=== PATIENT | male | born 1965 | race Caucasian/White ===

== ENCOUNTER 2017-03-30 08:03 | Observation (INO) | payer OTHER ==
[2017-03-30] MEDS ORDERED: NS 0.9% 1000 ML* 1,000 ML IV SCH (08:30)
--- NOTE | 2017-03-30 08:53 | RAD ---
HISTORY: Low pressure COMPARISONS: None VIEWS:1: Single frontal portable view of the chest at 8:35 AM FINDINGS: LINES AND TUBES: None. CARDIOMEDIASTINAL SILHOUETTE: The cardiomediastinal silhouette is normal for portable technique. PLEURA: The costophrenic angles are sharp. No pleural abnormalities are noted. LUNG PARENCHYMA: The lungs are clear. ABDOMEN: The upper abdomen is clear. There is no subphrenic gas. BONES AND SOFT TISSUES: No bone or soft tissue abnormalities are noted. IMPRESSION: NO ACTIVE CARDIOPULMONARY DISEASE.
[2017-03-30] MEDS ORDERED: Nitroglycerin TAB 0.4 MG* 0.4 MG TAB SL ONE (09:02)
[2017-03-30] MEDS ORDERED: Acetaminophen TAB* 325 MG PO ONE (09:41)
[2017-03-30 09:48] LABS: ALT 27 U/L (7-52); Albumin 4.3 g/dL (3.2-5.2); Alkaline Phosphatase 62 U/L (34-104); BUN/Creatinine Ratio 11.8 (8-20); Blood Urea Nitrogen 11 mg/dL (6-24); CO2 Carbon Dioxide 25 mmol/L (22-32); Calcium 9.2 mg/dL (8.6-10.3); Chloride 106 mmol/L (101-111); EGFR African American 111.1 (>60); EGFR Non-African American 86.4 (>60); Globulin 3.4 g/dL (2-4); Glucose 98 mg/dL (70-100); Lipase 21 U/L (11.0-82.0); Sodium 137 mmol/L (133-145); Total Protein 7.7 g/dL (6.4-8.9)
--- NOTE | 2017-03-30 10:01 | RAD ---
HISTORY: Dizziness, left arm numbness COMPARISONS: August 21, 2015 TECHNIQUE: Multiple contiguous axial CT scans were obtained of the head without intravenous contrast. FINDINGS: HEMORRHAGE/INFARCT: There is no hemorrhage or acute infarct. MASSES/SHIFT: There is no mass or shift. EXTRA-AXIAL SPACES: There are no extra-axial fluid collections. SULCI AND VENTRICLES: The sulci and ventricles are normal in size and position for the patient's stated age. CEREBRUM: There are no focal parenchymal abnormalities. BRAINSTEM: There are no focal parenchymal abnormalities. CEREBELLUM: There are no focal parenchymal abnormalities. VESSELS: The vessels are grossly normal. PARANASAL SINUSES: The paranasal sinuses are clear. ORBITS: The orbits are unremarkable. BONES AND SOFT TISSUE: No bone or soft tissue abnormalities are noted. OTHER: None IMPRESSION: NO ACUTE INTRACRANIAL PATHOLOGY.
[2017-03-30 10:08] LABS: Hematocrit 48 % (42-52); Hemoglobin 16.5 g/dl (14.0-18.0); Mean Corpuscular HGB Conc 34 g/dl (31-36); Mean Corpuscular Hemoglobin 32 pg (27-31); Mean Corpuscular Volume 94 fL (80-94); Red Cell Distribution Width 13 % (10.5-15)
[2017-03-30 10:09] LABS: Comments Flag Yes
[2017-03-30 10:10] LABS: Add Diff/Slide Review? Slide Review Added
[2017-03-30 10:18] LABS: TSH (Thyroid Stimulating Horm) 1.73 mcIU/mL (0.34-5.60)
[2017-03-30 10:45] LABS: Anion Gap 6 mmol/L (2-11)
[2017-03-30 11:30] LABS: Mean Platelet Volume 10 um3 (7.4-10.4); Red Blood Count 5.14 10^6/ul (4.0-5.4)
[2017-03-30] MEDS ORDERED: Ondansetron INJ* 2 MG/ML VIAL IV PRN (11:34)
[2017-03-30] MEDS ORDERED: Acetaminophen TAB* 325 MG PO PRN (11:34)
[2017-03-30] MEDS ORDERED: Aspirin Low Dose CHEW TAB* 81 MG PO ONE (11:41)
[2017-03-30] MEDS ORDERED: hydrALAZINE IV* 20 MG/ML VIAL IV SLOW PU PRN (13:25)
[2017-03-30] MEDS: amLODIPine TAB* 5 MG PO SCH (13:36)
[2017-03-30] MEDS: Heparin VIAL(*) 5000 UNITS/ML VIAL (FIVE THOUSAND) SUBCUT SCH ×2 (13:37→22:27)
--- NOTE | 2017-03-30 14:41 | ED ---
Jostin Zhu [place], scribed for Brandon Webster MD on 03/30/17 at 0855 . Hypertension - HPI Summary HPI Summary: Patient is a 51 y/o M who presents to the ED with high blood pressure since 0630 this morning. He reports clammy hands, tingling in left shoulder and fingers, feeling off balance (like equilibrium is off), dizziness (no room spinning), wax in ears, and pressure in central/top of head, but denies CP, sore throat, SOB, or changes in speech or in lower extremities. He also reports mild edema of ankles, unchanged from baseline. Pt states that he walks 45 minutes a day and takes 81mg ASA. - History of Current Complaint Chief Complaint: EDHypertension Stated Complaint: HIGH BLOOD PRESSURE, DIZZY , LEFT SHOLDER N Time Seen by Provider: 03/30/17 08:49 Hx Obtained From: Patient Onset/Duration: Started Hours Ago, Atraumatic, Still Present Timing: Constant, Lasting Hours Aggravating Factor(s): Nothing Alleviating Factor(s): Nothing Associated Signs & Symptoms: Tingling, Dizziness - Allergies/Home Medications Allergies/Adverse Reactions: Allergies Allergy/AdvReac Type Severity Reaction Status Date / Time No Known Allergies Allergy Verified 08/21/15 10:50 Home Medications: Home Medications NK [No Home Medications Reported] 03/30/17 [History Confirmed 03/30/17] PMH/Surg Hx/FS Hx/Imm Hx Endocrine/Hematology History: Denies: Hx Diabetes Cardiovascular History: Reports: Hx Hypertension - Surgical History Surgery Procedure, Year, and Place: ANKLE SX Infectious Disease History: No Infectious Disease History: Denies: Traveled Outside the [place] in Last 30 Days - Family History Known Family History: Positive: Cardiac Disease, Hypertension, Diabetes, Other - HLD. - Social History Alcohol Use: Weekly Substance Use Type: Reports: None Smoking Status (MU): Never Smoked Tobacco Review of Systems Positive: Skin Diaphoresis - "clammy hands" Positive: Other - "Wax in ears". . Negative: Sore Throat Negative: Chest Pain Negative: Shortness Of Breath Musculoskeletal: Other - No changes in lower extremities. Positive: Edema Neurological: Other - Tingling in LUE. Dizziness. No changes in speech. Positive: Headache - Pressure in top of head. All Other Systems Reviewed And Are Negative: Yes Physical Exam Triage Information Reviewed: Yes Vital Signs On Initial Exam: Initial Vitals Temp Pulse Resp BP Pulse Ox 98.7 F 79 20 203/123 98 03/30/17 08:04 03/30/17 08:04 03/30/17 08:04 03/30/17 08:04 03/30/17 08:04 Vital Signs Reviewed: Yes Appearance: Positive: Well-Appearing, No Pain Distress Skin: Positive: Warm, Skin Color Reflects Adequate Perfusion, Dry Head/Face: Positive: Normal Head/Face Inspection Eyes: Positive: EOMI, EMILE ENT: Positive: Normal ENT inspection Neck: Positive: Supple, Nontender Respiratory/Lung Sounds: Positive: Clear to Auscultation, Breath Sounds Present Cardiovascular: Positive: RRR Abdomen Description: Positive: Nontender, Soft Bowel Sounds: Positive: Present Musculoskeletal: Positive: Strength/ROM Intact, Other - Mild bilateral pedal edema. Neurological: Positive: Normal, Sensory/Motor Intact, Alert, Oriented to Person Place, Time, Other - No neurological deficit. Psychiatric: Positive: Affect/Mood Appropriate - [place] Coma Scale Coma Scale Total: 15 Diagnostics - Vital Signs Vital Signs Temp Pulse Resp BP Pulse Ox 03/30/17 08:07 98.3 F 88 20 203/123 98 03/30/17 08:04 98.7 F 79 20 203/123 98 - Laboratory Lab Results: Lab Results 03/30/17 03/30/17 03/30/17 Range/Units 09:25 09:25 09:25 WBC 10.0 (3.5-10.8) 10^3/ul RBC 5.14 (4.0-5.4) 10^6/ul Hgb 16.5 (14.0-18.0) g/dl Hct 48 (42-52) % MCV 94 (80-94) fL MCH 32 H (27-31) pg MCHC 34 (31-36) g/dl RDW 13 (10.5-15) % Plt Count 172 (150-450) 10^3/ul MPV 10 (7.4-10.4) um3 Neut % (Auto) 62.0 (38-83) % Lymph % (Auto) 24.0 L (25-47) % [place] % (Auto) 10.2 H (1-9) % Eos % (Auto) 3.1 (0-6) % Baso % (Auto) 0.7 (0-2) % Absolute Neuts (auto) 6.2 (1.5-7.7) 10^3/ul Absolute Lymphs (auto) 2.4 (1.0-4.8) 10^3/ul Absolute Monos (auto) 1.0 H (0-0.8) 10^3/ul Absolute Eos (auto) 0.3 (0-0.6) 10^3/ul Absolute Basos (auto) 0.1 (0-0.2) 10^3/ul Absolute Nucleated RBC 0.03 10^3/ul Nucleated RBC % 0.3 INR (Anticoag Therapy) 0.90 (0.89-1.11) APTT 18.4 L (26.0-36.3) seconds D-Dimer, Quantitative < 200 (Less Than 230) ng/mL Sodium 137 (133-145) mmol/L Potassium TNP Chloride 106 (101-111) mmol/L Carbon Dioxide 25 (22-32) mmol/L Anion Gap 6 (2-11) mmol/L BUN 11 (6-24) mg/dL Creatinine 0.93 (0.67-1.17) mg/dL Est GFR ( Amer) 111.1 (>60) Est GFR (Non-Af Amer) 86.4 (>60) BUN/Creatinine Ratio 11.8 (8-20) Glucose 98 (70-100) mg/dL Lactic Acid (0.5-2.0) mmol/L Calcium 9.2 (8.6-10.3) mg/dL Magnesium 2.0 (1.9-2.7) mg/dL Total Bilirubin 0.50 (0.2-1.0) mg/dL AST TNP ALT 27 (7-52) U/L Alkaline Phosphatase 62 (34-104) U/L Troponin I 0.00 (<0.04) ng/mL Total Protein 7.7 (6.4-8.9) g/dL Albumin 4.3 (3.2-5.2) g/dL Globulin 3.4 (2-4) g/dL Albumin/Globulin Ratio 1.3 (1-3) Lipase 21 (11.0-82.0) U/L TSH 1.73 (0.34-5.60) mcIU/mL 06/29/17 06/29/17 Range/Units 10:00 11:10 WBC (3.5-10.8) 10^3/ul RBC (4.0-5.4) 10^6/ul Hgb (14.0-18.0) g/dl Hct (42-52) % MCV (80-94) fL MCH (27-31) pg MCHC (31-36) g/dl RDW (10.5-15) % Plt Count (150-450) 10^3/ul MPV (7.4-10.4) um3 Neut % (Auto) (38-83) % Lymph % (Auto) (25-47) % [place] % (Auto) (1-9) % Eos % (Auto) (0-6) % Baso % (Auto) (0-2) % Absolute Neuts (auto) (1.5-7.7) 10^3/ul Absolute Lymphs (auto) (1.0-4.8) 10^3/ul Absolute Monos (auto) (0-0.8) 10^3/ul Absolute Eos (auto) (0-0.6) 10^3/ul Absolute Basos (auto) (0-0.2) 10^3/ul Absolute Nucleated RBC 10^3/ul Nucleated RBC % INR (Anticoag Therapy) (0.89-1.11) APTT (26.0-36.3) seconds D-Dimer, Quantitative (Less Than 230) ng/mL Sodium (133-145) mmol/L Potassium 4.0 Chloride (101-111) mmol/L Carbon Dioxide (22-32) mmol/L Anion Gap (2-11) mmol/L BUN (6-24) mg/dL Creatinine (0.67-1.17) mg/dL Est GFR ( Amer) (>60) Est GFR (Non-Af Amer) (>60) BUN/Creatinine Ratio (8-20) Glucose (70-100) mg/dL Lactic Acid 1.6 (0.5-2.0) mmol/L Calcium (8.6-10.3) mg/dL Magnesium (1.9-2.7) mg/dL Total Bilirubin (0.2-1.0) mg/dL AST 26 ALT (7-52) U/L Alkaline Phosphatase (34-104) U/L Troponin I (<0.04) ng/mL Total Protein (6.4-8.9) g/dL Albumin (3.2-5.2) g/dL Globulin (2-4) g/dL Albumin/Globulin Ratio (1-3) Lipase (11.0-82.0) U/L TSH (0.34-5.60) mcIU/mL Result Diagrams: 03/30/17 09:25 03/30/17 11:10 Lab Statement: Any lab studies that have been ordered have been reviewed, and results considered in the medical decision making process. - Radiology CXR Radiology Interpretation Completed By: Radiologist - IMPRESSION: NO ACTIVE CARDIOPULMONARY DISEASE. - CT BRAIN CT Interpretation Completed By: Radiologist - IMPRESSION: NO ACUTE INTRACRANIAL PATHOLOGY. - EKG 811 EKG Interpretation: NSR @ [address] No ectopy. Re-Evaluation - Re-Evaluation First Eval Re-Evaluation Time: 10:52 Comment: Reviewed imaigng and lab results. Second Eval Re-Evaluation Time: 11:13 Comment: Discussed consult with hospitalist. Agreeable to admission. Hypertension Course/Dx - Course Course Of Treatment: NO CRITICAL CARE TIME. DISCUSSED RESULTS WITH PATIENT. ADMIT HOSPITALIST STABLE. - Diagnoses Provider Diagnoses: Chest pain, Dizziness - Physician Notifications Discussed Care Of Patient With: Tatianna Zhang Time Discussed With Above Provider: 11:04 - Consult admission. Will admit. Instructed by Provider To: Admit As Inpatient Admit/Transition Orders Completed By ED Provider: Yes Discharge - Discharge Plan Condition: Stable Disposition: ADMITTED TO [facility] documentation as recorded by the Jostin her [place] accurately reflects the service I personally performed and the decisions made by me, Brandon Webster MD.
--- NOTE | 2017-03-30 18:37 | HP ---
CC: Dr. Mcknight * HISTORY AND PHYSICAL: DATE OF ADMISSION: 03/30/17 PRIMARY CARE PROVIDER: Dr. Mcknight. ATTENDING PHYSICIAN WHILE IN THE HOSPITAL: Tatianna Zhang DO * (report dictated by Eron Julio NP). CHIEF COMPLAINT: Chest pain. HISTORY OF PRESENT ILLNESS: Mr. Pendleton is a 51-year-old male patient. He does carry a history of PATRICIA and hypertension, although he is currently not on any blood pressure medications. He comes into the ER today stating he woke up at about 6 o'clock in the morning, he started having some left shoulder tightness and had some tingling down his arm. He felt clammy in his hands. He was concerned because these symptoms were not going away. He checked his blood pressure, it was 179/110. He called his parents. They brought him immediately into the hospital because he was concerned he was having a heart attack. He does state that he felt lightheaded with this. He denied feeling short of breath. He denied having any abdominal discomfort. He states he has not had any recent trips or travel or any calf pain or leg pain. He states that he has not had any recent illnesses. He says he got here, he took nitro here in the ER and that his symptoms went away and he felt much better. He says he does typically walk on a treadmill on a daily basis 30 to 40 minutes a day and he does well with this. He does not get any chest tightness or pressure and he feels that he does well with this every day, but there was concern because of his story and we were asked to evaluate for admission. PAST MEDICAL HISTORY: Significant for: 1. Hypertension. 2. PATRICIA. PAST SURGICAL HISTORY: He has had a left ankle surgery. HOME MEDICATIONS: Denied. ALLERGIES TO MEDICATIONS: Include no known drug allergies. FAMILY HISTORY: His father is diabetic, also has a pacemaker defibrillator. Mother's history is reviewed, noncontributory. SOCIAL HISTORY: He is a former smoker. He occasionally drinks alcohol. He is with 6 children. Surrogate decision maker is his . REVIEW OF SYSTEMS: There is no documented fever. He denied having any significant weight change. There was no double vision. He denies having any ear discharge. There is no rhinorrhea, no sore throat, no thyroid enlargement. He denies any chest pain currently. He denies any abdominal pain. There was no nausea, no vomiting, no dysuria, no frequency, no seizure, no loss of conscious. He did feel dizzy. Review of 14 systems was completed, all others negative. PHYSICAL EXAMINATION GENERAL: At this time, Mr. Pendleton is a 51-year-old male patient. He is morbidly obese. He is sitting in the ER stretcher. He does not appear to be in any acute distress. VITAL SIGNS: Reveals blood pressure 131/90, pulse 69, respirations 19, O2 sat 96%, temperature 98.3. HEENT: Head is atraumatic and normocephalic. Eyes: EOMs are intact. His sclerae were anicteric and not pale. NECK: Supple. THROAT: Oral mucosa appears to be moist. No oropharyngeal erythema. LUNGS: Clear to auscultation bilaterally. No wheezes, rales, or rhonchi. HEART: Sounds S1, S2. Regular rate and rhythm. No murmurs, rubs, or gallops. ABDOMEN: Soft, flat, nontender. Bowel sounds present. EXTREMITIES: Pulses were 2+ throughout. He is able to move all 4 extremities with 5/5 strength. NEUROLOGIC: He is awake. He is alert. He is oriented x3. His speech is clear. No gross focal deficits. SKIN: Intact. DIAGNOSTIC STUDIES/LAB DATA: The labs today revealed WBC of 10.0, RBC of 5.14 , hemoglobin 16.5, hematocrit of 48, and platelet count of 172,000. INR of 0.98. PTT 18.4. D-dimer less than 200. Sodium 137, potassium pending, chloride 106, bicarb 25, BUN 11, creatinine 0.93, glucose 98, lactate 1.6, calcium 9.2, total mag 2.0, total bili 0.5, ALT 27, alk phos 62. Troponin 0. TSH normal. Lipase normal. He had a brain CT obtained today, which showed no acute intracranial pathology. There was a chest x-ray obtained today, under my review I did not appreciate any acute infiltrates or effusions. Radiology read it as no active cardiopulmonary disease. There was an EKG, which showed normal sinus rhythm, rate of 78. No ST elevations or T-wave inversions were noted. Old medical records were reviewed. ASSESSMENT AND PLAN: Mr. Pendleton is a 51-year-old male patient coming into the ER today with complaints of left shoulder discomfort, arm discomfort, and also feeling association of clamminess and becoming sweaty. He was evaluated in the ER. There was concern this could represent acute coronary syndrome. Hospitalist service was asked to evaluate for admission. He will be admitted under observation status for: 1. Chest pain. At this point, his story is concerning, he was relieved with nitro. I think that he does want an observation stay for serial troponins and a stress test, we will try to get the resting portion today, then a stress portion tomorrow. I will go ahead and place him on telemetry. We will start him on aspirin. We will check his A1c and lipid panel in the morning and will continue to follow. 2. Hypertension. We will monitor his blood pressure. His blood pressure when he came in was 203/123, it is now without intervention down to 131/90. We will monitor this. Should it remain elevated, we may need to consider starting him on a small dose of antihypertensive. 3. DVT prophylaxis. He will be placed on heparin subcu. 4. Code status. Full code. 5. Fluids, electrolytes, and nutrition. He is n.p.o. pending stress test and then he can have something to eat after this and it will be a heart healthy diet. TIME SPENT: Time spent on the admission 60 minutes; greater than half the time spent [id number] with the patient obtaining my history and physical; other half time spent going over the plan of care with the patient and implementing plan of care. I discussed the plan of care with my attending, Dr. Zhang; she is in agreement. ERON JULIO NP [id number]/[facility] #: [id number] ESPERANZA
[2017-03-31 05:23] LABS: BUN/Creatinine Ratio 15.1 (8-20); Calcium 9.1 mg/dL (8.6-10.3); EGFR African American 95.5 (>60); EGFR Non-African American 74.3 (>60); HDL Cholesterol 36.1 mg/dL
[2017-03-31 05:25] LABS: Hematocrit 44 % (42-52); Hemoglobin 15.3 g/dl (14.0-18.0); Mean Corpuscular HGB Conc 35 g/dl (31-36); Mean Corpuscular Hemoglobin 32 pg (27-31); Mean Corpuscular Volume 94 fL (80-94); Mean Platelet Volume 9 um3 (7.4-10.4); Red Blood Count 4.73 10^6/ul (4.0-5.4); Red Cell Distribution Width 13 % (10.5-15); White Blood Count 7.1 10^3/ul (3.5-10.8)
[2017-03-31] MEDS: Heparin VIAL(*) 5000 UNITS/ML VIAL (FIVE THOUSAND) SUBCUT SCH (05:44)
[2017-03-31 08:25] VITALS: BP 137/86
[2017-03-31] MEDS ORDERED: Regadenoson* 0.4 MG/5 ML SYRINGE ONE (08:52)
[2017-03-31] MEDS ORDERED: Aminophylline IV* 25 MG/ML 10 ML VIAL ONE (08:52)
[2017-03-31] MEDS ORDERED: Aspirin Low Dose CHEW TAB* 81 MG PO SCH (09:00)
--- NOTE | 2017-03-31 10:03 | PN ---
Subjective Date of Service: 03/31/17 Interval History: Mr. Pendleton states that he is feeling quite well and is eager for discharge to home. He denies chest pain, SOB, nausea, or abdominal pain. Objective Active Medications: Acetaminophen (Tylenol Tab*) 650 mg PO Q4H PRN Amlodipine Besylate (Norvasc Tab*) 5 mg PO DAILY MIROSLAVA Aspirin (Aspirin Low Dose Tab*) 81 mg PO DAILY MIROSLAVA Heparin Sodium (Porcine) (Heparin Vial(*)) 5,000 units SUBCUT Q8HR MIROSLAVA Hydralazine HCl (Apresoline Iv*) 5 mg IV SLOW PU Q6H PRN Ondansetron HCl (Zofran Inj*) 4 mg IV Q6H PRN Vital Signs 03/30/17 03/30/17 03/30/17 12:00 12:05 12:53 Temperature 98.1 F Pulse Rate 69 70 66 Respiratory 20 23 16 Rate Blood Pressure 150/98 179/96 (mmHg) O2 Sat by Pulse 96 95 95 Oximetry 03/30/17 03/30/17 03/30/17 15:25 19:25 19:27 Temperature 98.0 F 98.3 F Pulse Rate 59 76 Respiratory 20 18 20 Rate Blood Pressure 139/93 181/110 (mmHg) O2 Sat by Pulse 95 94 Oximetry 03/30/17 03/30/17 03/30/17 20:04 20:30 23:25 Temperature 98.2 F Pulse Rate 73 64 Respiratory 16 Rate Blood Pressure 157/81 129/79 (mmHg) O2 Sat by Pulse 97 96 Oximetry 03/31/17 03/31/17 03/31/17 03:37 07:24 07:50 Temperature 97.9 F 97.7 F Pulse Rate 52 69 Respiratory 16 20 Rate Blood Pressure 124/79 137/86 (mmHg) O2 Sat by Pulse 96 95 96 Oximetry Oxygen Devices in Use Now: None Appearance: Male sitting up in bed in NAD Eyes: No Scleral Icterus Ears/Nose/Mouth/Throat: Mucous Membranes Moist Neck: Trachea Midline Respiratory: Symmetrical Chest Expansion and Respiratory Effort, Clear to Auscultation Cardiovascular: NL Sounds; No Murmurs; No JVD, No Edema Abdominal: NL Sounds; No Tenderness; No Distention Lymphatic: No Cervical Adenopathy Extremities: No Edema Skin: No Rash or Ulcers Neurological: Alert and Oriented x 3, NL Muscle Strength and Tone Nutrition: Taking PO's Result Diagrams: 03/31/17 04:50 03/31/17 04:50 Additional Lab and Data: Lab Results 03/30/17 03/30/17 03/30/17 Range/Units 09:25 09:25 09:25 WBC 10.0 (3.5-10.8) 10^3/ul RBC 5.14 (4.0-5.4) 10^6/ul Hgb 16.5 (14.0-18.0) g/dl Hct 48 (42-52) % MCV 94 (80-94) fL MCH 32 H (27-31) pg MCHC 34 (31-36) g/dl RDW 13 (10.5-15) % Plt Count 172 (150-450) 10^3/ul MPV 10 (7.4-10.4) um3 Neut % (Auto) 62.0 (38-83) % Lymph % (Auto) 24.0 L (25-47) % [place] % (Auto) 10.2 H (1-9) % Eos % (Auto) 3.1 (0-6) % Baso % (Auto) 0.7 (0-2) % Absolute Neuts (auto) 6.2 (1.5-7.7) 10^3/ul Absolute Lymphs (auto) 2.4 (1.0-4.8) 10^3/ul Absolute Monos (auto) 1.0 H (0-0.8) 10^3/ul Absolute Eos (auto) 0.3 (0-0.6) 10^3/ul Absolute Basos (auto) 0.1 (0-0.2) 10^3/ul Absolute Nucleated RBC 0.03 10^3/ul Nucleated RBC % 0.3 INR (Anticoag Therapy) 0.90 (0.89-1.11) APTT 18.4 L (26.0-36.3) seconds D-Dimer, Quantitative < 200 (Less Than 230) ng/mL Sodium 137 (133-145) mmol/L Potassium TNP Chloride 106 (101-111) mmol/L Carbon Dioxide 25 (22-32) mmol/L Anion Gap 6 (2-11) mmol/L BUN 11 (6-24) mg/dL Creatinine 0.93 (0.67-1.17) mg/dL Est GFR ( Amer) 111.1 (>60) Est GFR (Non-Af Amer) 86.4 (>60) BUN/Creatinine Ratio 11.8 (8-20) Glucose 98 (70-100) mg/dL Lactic Acid (0.5-2.0) mmol/L Calcium 9.2 (8.6-10.3) mg/dL Magnesium 2.0 (1.9-2.7) mg/dL Total Bilirubin 0.50 (0.2-1.0) mg/dL AST TNP ALT 27 (7-52) U/L Alkaline Phosphatase 62 (34-104) U/L Troponin I 0.00 (<0.04) ng/mL Total Protein 7.7 (6.4-8.9) g/dL Albumin 4.3 (3.2-5.2) g/dL Globulin 3.4 (2-4) g/dL Albumin/Globulin Ratio 1.3 (1-3) Lipase 21 (11.0-82.0) U/L TSH 1.73 (0.34-5.60) mcIU/mL 03/30/17 03/30/17 Range/Units 10:00 11:10 WBC (3.5-10.8) 10^3/ul RBC (4.0-5.4) 10^6/ul Hgb (14.0-18.0) g/dl Hct (42-52) % MCV (80-94) fL MCH (27-31) pg MCHC (31-36) g/dl RDW (10.5-15) % Plt Count (150-450) 10^3/ul MPV (7.4-10.4) um3 Neut % (Auto) (38-83) % Lymph % (Auto) (25-47) % [place] % (Auto) (1-9) % Eos % (Auto) (0-6) % Baso % (Auto) (0-2) % Absolute Neuts (auto) (1.5-7.7) 10^3/ul Absolute Lymphs (auto) (1.0-4.8) 10^3/ul Absolute Monos (auto) (0-0.8) 10^3/ul Absolute Eos (auto) (0-0.6) 10^3/ul Absolute Basos (auto) (0-0.2) 10^3/ul Absolute Nucleated RBC 10^3/ul Nucleated RBC % INR (Anticoag Therapy) (0.89-1.11) APTT (26.0-36.3) seconds D-Dimer, Quantitative (Less Than 230) ng/mL Sodium (133-145) mmol/L Potassium 4.0 Chloride (101-111) mmol/L Carbon Dioxide (22-32) mmol/L Anion Gap (2-11) mmol/L BUN (6-24) mg/dL Creatinine (0.67-1.17) mg/dL Est GFR ( Amer) (>60) Est GFR (Non-Af Amer) (>60) BUN/Creatinine Ratio (8-20) Glucose (70-100) mg/dL Lactic Acid 1.6 (0.5-2.0) mmol/L Calcium (8.6-10.3) mg/dL Magnesium (1.9-2.7) mg/dL Total Bilirubin (0.2-1.0) mg/dL AST 26 ALT (7-52) U/L Alkaline Phosphatase (34-104) U/L Troponin I (<0.04) ng/mL Total Protein (6.4-8.9) g/dL Albumin (3.2-5.2) g/dL Globulin (2-4) g/dL Albumin/Globulin Ratio (1-3) Lipase (11.0-82.0) U/L TSH (0.34-5.60) mcIU/mL Assess/Plan/Problems-Billing Assessment: Mr. Pendleton is a 51 yo male with a PMH of hypertension and PATRICIA who was admitted on 03/30/17 with chest pain. - Patient Problems (1) Chest pain Comment: - Trops negative. EKG without evidence of ischemia. - Stress test negative. - Question if symptoms related to uncontrolled hypertension. (2) Hypertension Comment: - SBP as high as 200 on arrival. Now ranging 120-130. - Continue amlodipine which was started on admission, patient not on any home meds. Patient strongly encouraged to follow up with Dr. Mcknight for continued medication adjustments as needed. (3) PATRICIA (obstructive sleep apnea) Comment: - Continue home cpap. (4) DVT prophylaxis Comment: - Heparin SQ. (5) Full code status Status and Disposition: OBV. Discharge to home.
[2017-03-31] MEDS: amLODIPine TAB* 5 MG PO SCH (10:39)
--- NOTE | 2017-03-31 10:57 | RAD ---
Edited for charges. INDICATION: Chest pain COMPARISON: None TECHNIQUE: Rest images were acquired following the intravenous injection of 25.5 millicuries of technetium 99m tetrofosmin. Exercise stress images were acquired following the intravenous administration of 25.2 millicuries of technetium 99m tetrofosmin. The patient was exercised to a peak heart rate of 149 which is 87 of age predicted maximum. FINDINGS: There are no defects of the stress-induced or fixed nature. There is some diaphragmatic attenuation. The cardiac chamber size is normal. There are no wall motion abnormalities. The ejection fraction is calculated at 57 % during rest and 62% during stress. IMPRESSION: NO STRESS-INDUCED DEFECTS. NORMAL WALL MOTION AND CONTRACTILITY. SUSPECT MILD DIAPHRAGMATIC ATTENUATION. ASSESSMENT: LOW-RISK Based on imaging criteria from ACC/AHA 2002 Guideline Update for the Management of Patients With Chronic Stable Angina Table 23. Noninvasive Risk Stratification. MTDD
--- NOTE | 2017-03-31 12:16 | DS ---
CC: Dr. Mcknight* DATE OF ADMISSION: 03/30/2017. DATE OF DISCHARGE: 03/31/2017. ATTENDING PHYSICIAN: Dr. Sommer Diaz* (dictation provided by Lara Linda NP) . PRIMARY DIAGNOSES: 1. Chest pain. 2. Uncontrolled hypertension. SECONDARY DIAGNOSIS: Obstructive sleep apnea, on home CPAP. MEDICATION AT THE TIME OF DISCHARGE: Amlodipine 5 mg p.o. daily. HOSPITAL COURSE: Mr. Pendleton is a 51-year-old male with a past medical history of hypertension, obstructive sleep apnea on home CPAP, and morbid obesity who presented to the hospital on 03/30/2017 with concern for chest pain. Please see the dictated history and physical from Eron Julio NP for complete details. In brief, the patient reported pain on awakening that radiated down into his left arm. In the emergency room, he had a troponin which was 0 and an EKG which showed no evidence of ischemia. Mr. Pendleton went on to have repeat troponins times two, both of which were also negative. His EKG was repeated and it showed no evidence of ischemia. He had a stress test that showed no acute infarct and no evidence of reversible ischemic and was read as low risk. On admission, Mr. Pendleton did have dramatically elevated blood pressure with a blood pressure running 203/123. He did not take any medications for blood pressure at home. We have started Amlodipine here at 5 mg and his blood pressure has been running 120s to 130s. I strongly recommended to him that he continue on Amlodipine and follow-up with Dr. Mcknight regarding continued adjustment of his Amlodipine. I have noted to him that his EKG shows evidence of left ventricular hypertrophy which makes it paramount importance that he make an effect to manage blood pressure. I have also recommended to him that he follow-up with [facility] for weight loss and blood pressure management. We did check a hemoglobin A1c while he was here and it was only 5.4. Mr. Pendleton has remained chest pain free during the hospitalization. I suspect that perhaps his chest pain was related to his dramatically elevated blood pressure which we are now treating with Amlodipine. DISPOSITION: To home. DIET: Low salt. ACTIVITY: As tolerated. FOLLOW-UP PLANS: 1. Please follow-up with Dr. Mcknight in the next one to two weeks regarding adjustment of blood pressure medications as needed. 2. Please consider follow-up with [facility]. The patient has been provided with information about that for weight loss. Approximately 60 minutes were spent in the discharge of this patient, more than half that time was spent with the patient at the bedside reviewing the events leading up to this hospitalization, performing the physical examination and reviewing the plan of care. LARA LINDA NP [id number]/[facility] #: [id number] [place]ER[place]
== END 2017-03-31 12:44 | disposition home or self-care (01) ==
LOC: ED 08:03 → MEDTELE 11:32
PROVIDERS: ADMIT Hospitalist; ATTEND Hospitalist
DX: R07.9 Chest pain, unspecified (principal); G47.33 Obstructive sleep apnea (adult) (pediatric); Z87.891 Personal history of nicotine dependence; I10 Essential (primary) hypertension
CPT/HCPCS: 36415; 70450; 71010; 78452; 80048; 80053; 80061; 83036; 83605; 83690; 83735; 84443; 84484; 85025; 85379; 85610; 85730; 93005; 93017; 94760; 96374; 99283; A9270-GY; A9502; G0378; J0280; J0360; J1644; J2785

== ENCOUNTER 2021-01-13 08:44 | Inpatient (IN) ==
[~2021-01-13 08:44] MED LIST: Buffered Lidocaine 1% SYRIN 1 ml INTRADERM ONE; Lactated Ringers 1000 ml BAG 1,000 ML IV SCH
[2021-01-13] MEDS ORDERED: Heparin 5000 UNITS/ML 1 mL VIAL ONE (09:09)
[2021-01-13] MEDS ORDERED: ceFAZolin 1 GM ADVAN 1 GM ADDV.VIAL IVPB ONE (09:09)
[2021-01-13] MEDS ORDERED: ceFAZolin 2 GM PREMIX 2 GM/50 ML BAG ONE (09:09)
[2021-01-13] MEDS ORDERED: Bupivacaine 0.25% SDV 30 ML ONE (09:52)
[2021-01-13] MEDS ORDERED: Sugammadex 500 MG/5 ML 5 ml VIAL IV PUSH ONE (10:05)
[2021-01-13] MEDS ORDERED: Ondansetron 4 mg VIAL 2 MG/ML 2 ml VIAL ONE ×2 (10:05→12:17)
[2021-01-13] MEDS ORDERED: Propofol 10 MG/ML 20 ML BTL ONE ×2 (10:05→10:48)
[2021-01-13] MEDS ORDERED: Dexamethasone IV 4 MG/ML VIAL 1 ml VIAL ONE (10:05)
[2021-01-13] MEDS ORDERED: Midazolam 2 mg/2 ml VIAL 1 mg/ml 2 ml VIAL (2 mg) ONE (10:06)
[2021-01-13] MEDS ORDERED: fentaNYL 250 mcg/5 ml 50 MCG/ML 5 ml VIAL (250 MCG) ONE (10:07)
[2021-01-13] MEDS ORDERED: Rocuronium 50 mg VIAL 10 mg/ml 5 ml VIAL (50 mg) ONE ×2 (10:08→11:29)
[2021-01-13] MEDS ORDERED: Phenylephrine IV 10 MG/ML 1 ml VIAL ONE (10:49)
[2021-01-13] MEDS ORDERED: DiMENhydriNATE IV 50 mg/ml 1 ml VIAL IV PUSH PRN (11:05)
[2021-01-13] MEDS ORDERED: Acetaminophen IV 1 GM/100ML 1,000 MG/100 ML VIAL IVPB PRN (11:05)
[2021-01-13] MEDS ORDERED: Ondansetron 4 mg VIAL 2 MG/ML 2 ml VIAL IV PRN ×2 (11:05→12:40)
[2021-01-13] MEDS ORDERED: Naloxone 0.4 mg VIAL 0.4 mg/ml 1 ml VIAL IV PRN (11:05)
[2021-01-13] MEDS ORDERED: Acetaminophen IV 1 GM/100ML 100 ML ONE (11:44)
[2021-01-13] MEDS ORDERED: fentaNYL 100 mcg/2 ml 50 MCG/ML VIAL ONE (12:17)
[2021-01-13] MEDS: fentaNYL 100 mcg/2 ml 50 MCG/ML VIAL IV PRN ×4 (12:20→12:41)
[2021-01-13] MEDS ORDERED: HYDROmorphone 0.5 MG/0.5 ML SYRINGE IV SLOW PU PRN (12:40)
[2021-01-13] MEDS ORDERED: diPHENhydraMINE IV 50 MG/ML 1 ml VIAL (BENADRYL) SLOW PUSH PRN (12:40)
[2021-01-13] MEDS ORDERED: HYDROmorphone 1 MG/1 ML SYRINGE IV SLOW PU PRN (12:40)
[2021-01-13] MEDS ORDERED: HYDROmorphone 1 MG/1 ML SYRINGE ONE (12:43)
[2021-01-13] MEDS: HYDROmorphone 1 MG/1 ML SYRINGE IV PRN ×4 (12:44→13:19)
[2021-01-13] MEDS ORDERED: DiMENhydriNATE IV 50 mg/ml 1 ml VIAL ONE (13:24)
[2021-01-13] MEDS: Lactated Ringers 1000 ml BAG 1,000 ML IV SCH ×2 (14:19→21:05)
[2021-01-13] MEDS: Heparin 5000 UNITS/ML 1 mL VIAL SUBCUT SCH (22:28)
[2021-01-13] MEDS: Famotidine IV 10 MG/ML 2 ml VIAL (20 mg) IV SLOW PU SCH (22:28)
[2021-01-14] MEDS: Lactated Ringers 1000 ml BAG 1,000 ML IV SCH (03:49)
[2021-01-14] MEDS: Heparin 5000 UNITS/ML 1 mL VIAL SUBCUT SCH ×2 (06:21→14:13)
[2021-01-14] MEDS ORDERED: Scopolamine PATCH Remove NOTE PATCH OFF SCH (08:30)
[2021-01-14] MEDS: Famotidine IV 10 MG/ML 2 ml VIAL (20 mg) IV SLOW PU SCH (08:49)
[2021-01-14 11:28] VITALS: BP 126/66
[2021-01-14] MEDS ORDERED: D5W 1/2 NS KCl 20 meq 1000 ml 1,000 ML IV SCH (13:00)
== END 2021-01-14 17:50 | disposition home or self-care (01) | DRG 403 ==
LOC: AA 08:44 → SSU 14:15
PROVIDERS: ADMIT Surgery; ATTEND Surgery